=== PATIENT | female | born 1935 | race Caucasian/White ===

== ENCOUNTER → 2017-11-09 | Outpatient (CLI) | payer OTHER ==
[~2017-11-09] MED LIST: CALCIUM CIT-VI1 EACH PO; CELEBREX 200 M200 M1 PO; DIOVAN HCT 1601 EACH PO; GLUCOSAMIN-CHO1 EACH PO; MULTIVITAMINS1 EAC7 PO; PRILOSEC 20 MG20 MG PO; TOPROL XL50 MG PO
== END ==
LOC: RAD 02:08
DX: Z12.31 Encounter for screening mammogram for malignant neoplasm of breast (principal)

== ENCOUNTER → 2018-12-11 | Outpatient (CLI) | payer OTHER | LOC: BC 11:02 | DX: Z12.31 Encounter for screening mammogram for malignant neoplasm of breast (principal) ==